=== PATIENT | male | born 1985 | race African-American/Black ===

== ENCOUNTER 2018-05-31 09:56 | Emergency (ER) | payer SELFPAY ==
[~2018-05-31] VITALS: Ht 177.8 cm; Wt 61.2 kg
[2018-05-31 10:05] VITALS: BP 131/93
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
[2018-05-31] MEDS ORDERED: LIDOCAINE WITH 8.4% SOD BICARB 3 ML DISP.SYRIN. INJ ONE ×2 (11:00)
[2018-05-31] MEDS ORDERED: DIPHTH,PERTUSS(ACELL),TET TOX 0.5 ML DISP.SYRIN. VAX IM ONE (11:00)
== END 2018-05-31 11:13 | disposition left against medical advice (07) ==
LOC: ER 09:56
DX: S61.411A Laceration without foreign body of right hand, initial encounter (principal); Y04.0XXA Assault by unarmed brawl or fight, initial encounter; Y93.89 Activity, other specified; Y92.89 Other specified places as the place of occurrence of the external cause; Y99.8 Other external cause status
CPT/HCPCS: 73130; 99283